=== PATIENT | male | born 1935 | race Caucasian/White ===

== ENCOUNTER → 2016-08-27 | Outpatient (REF) ==
[~2016-08-27] MED LIST: ASPIRIN 32325 MG/TAB PO; FLOMAX 0.40.4 MG/CAP PO; FOLIC ACID800 MCG PO; LISINOPRIL10 MG PO; LOPRESSOR 225 MG/TAB PO; RT ADVAIR 228 DISKUS IH; SYNTHROID0.112 MG/T PO; SYNTHROID0.15 MG PO
== END ==
LOC: COL.CARD 14:06
DX: I47.1 Supraventricular tachycardia (principal); I49.1 Atrial premature depolarization; I49.3 Ventricular premature depolarization; R00.2 Palpitations

== ENCOUNTER → 2016-10-21 | Outpatient (REF) ==
[2016-10-21 15:35] LABS: THYROID STIMULATING HORMONE 0.204 uIU/mL (0.465-4.680)
== END ==
LOC: ZLAB.WCH 14:41
PROVIDERS: Family Medicine
DX: Z01.89 Encounter for other specified special examinations (principal)

== ENCOUNTER → 2017-04-29 | Outpatient (REF) ==
[2017-04-29 09:37] LABS: FERRITIN 528 ng/mL (18-464)
== END ==
LOC: ZLAB.WCH 08:49
PROVIDERS: Family Medicine
DX: Z01.89 Encounter for other specified special examinations (principal)

== ENCOUNTER → 2017-05-20 | Outpatient (REF) ==
[2017-05-20 15:21] LABS: THYROID STIMULATING HORMONE 0.037 uIU/mL (0.465-4.680)
== END ==
LOC: ZLAB.WCH 14:14
PROVIDERS: Family Medicine
DX: Z01.89 Encounter for other specified special examinations (principal)

== ENCOUNTER → 2017-08-13 | Outpatient (REF) ==
[2017-08-13 20:20] LABS: THYROID STIMULATING HORMONE 0.699 uIU/mL (0.465-4.680)
== END ==
LOC: ZLAB.WCH 18:47
PROVIDERS: Family Medicine
DX: Z01.89 Encounter for other specified special examinations (principal)

== ENCOUNTER → 2017-12-24 | Outpatient (REF) | LOC: ZLAB.WCH 16:42 | DX: Z01.89 Encounter for other specified special examinations (principal) ==

== ENCOUNTER → 2018-01-05 | Outpatient (REF) | LOC: ZLAB.WCH 15:55 | DX: Z01.89 Encounter for other specified special examinations (principal) ==

== ENCOUNTER → 2018-07-04 | Outpatient (REF) | LOC: ZLAB.WCH 11:07 | DX: Z01.89 Encounter for other specified special examinations (principal) ==

== ENCOUNTER → 2018-08-22 | Outpatient (REF) | LOC: ZLAB.WCH 18:22 | DX: Z01.89 Encounter for other specified special examinations (principal) ==

== ENCOUNTER → 2018-08-31 | Outpatient (REF) | LOC: ZLAB.WCH 18:34 | DX: Z01.89 Encounter for other specified special examinations (principal) ==

== ENCOUNTER → 2018-10-12 | Outpatient (REF) | LOC: ZLAB.WCH 11:57 | DX: Z01.89 Encounter for other specified special examinations (principal) ==

== ENCOUNTER → 2018-12-12 | Outpatient (REF) ==
[2018-12-12 15:17] LABS: THYROID STIMULATING HORMONE 1.4 uIU/mL (0.465-4.680)
== END ==
LOC: ZLAB.WCH 14:20
PROVIDERS: Family Medicine
DX: Z01.89 Encounter for other specified special examinations (principal)

== ENCOUNTER → 2018-12-30 | Outpatient (REF) | LOC: ZLAB.WCH 10:05 | DX: Z01.89 Encounter for other specified special examinations (principal) ==

== ENCOUNTER → 2019-01-09 | Outpatient (REF) | LOC: ZLAB.WCH 14:05 | DX: Z01.89 Encounter for other specified special examinations (principal) ==

== ENCOUNTER → 2019-02-13 | Outpatient (REF) | LOC: ZLAB.WCH 09:38 | DX: Z01.89 Encounter for other specified special examinations (principal) ==

== ENCOUNTER 2020-09-27 15:31 | Inpatient (IN) | payer MEDICARE, BC ==
[~2020-09-27] VITALS: Ht 182.9 cm; Wt 100.5 kg
[2020-09-27] MEDS ORDERED: TOPROL XL 25MG25 MG PO (18:14)
[2020-09-27] MEDS ORDERED: LEVOXYL0.125 MG PO (18:15)
[2020-09-27] MEDS ORDERED: FOLIC ACID 11 MG/TA1 PO (18:15)
[2020-09-27] MEDS ORDERED: YUPELRI175 MCG/3 IH (18:16)
[2020-09-27] MEDS ORDERED: ACIDOPHILIS PO (18:16)
[2020-09-27] MEDS ORDERED: PROTONIX20 MG PO (18:17)
[2020-09-27] MEDS ORDERED: ASPIRIN 81M81 MG/TA2 PO (18:18)
[2020-09-27] MEDS ORDERED: AMITRIPTYLINE H10 M1 PO (18:18)
[2020-09-27] MEDS ORDERED: TYLENOL 500MG500 MG PO (18:19)
[2020-09-27] MEDS ORDERED: LASIX 40MG TABL40 MG PO (18:19)
[2020-09-27] MEDS ORDERED: DULCOLAX STOOL100 MG PO (18:20)
[2020-09-27] MEDS ORDERED: FLOMAX 0.40.4 MG/CAP PO (18:22)
[2020-09-27] MEDS ORDERED: TYLENOL 325MG325 MG PO (18:29)
[2020-09-27] MEDS ORDERED: ATIVAN 0.50.5 MG/TAB PO (18:30)
[2020-09-27] MEDS ORDERED: MIRALAX PA17 GM/Dose PO (18:31)
[2020-09-27] MEDS ORDERED: VESICARE 5MG5 MG PO ×2 (18:32→18:35)
--- NOTE | 2020-09-27 18:38 | NUR ---
Patient admitted to [facility] per EMS at 1700, paperwork received. Yousuf Hill and Fly notified of admission at 1705. NGT placed in right nare at 65cm per drs order, return of brown liquid. See assessment. Abdomen distended and firm, bowel sounds distant and tinkling. No bowel movement x 3 days. No flatus. No c/o pain at this time.
[2020-09-27 18:49] VITALS: BP 152/47; PULSE 84; TEMP 97.4
--- NOTE | 2020-09-27 19:30 | NUR ---
Pt. sitting up in bed with at bedside. Pt. is A&OX3, assessment complete. INT to rt. ac patent. NG tube to LIS with brown drainage noted. Pt. denies pain. Call light within reach.
--- NOTE | 2020-09-27 20:45 | NUR ---
Pt. to OR.
[2020-09-27 21:40] LABS: COLLECTION METHOD IN
[2020-09-27 21:45] LABS: MUCOUS Present /lpf; PH 5 (5-8); SQUAMOUS EPITHELIAL 0-2 /hpf; URINE APPEARANCE Clear; URINE BACTERIA Rare /hpf; URINE BILIRUBIN Negative (NEGATIVE); URINE BLOOD Negative (NEGATIVE); URINE COLOR Yellow; URINE GLUCOSE Negative (NEGATIVE); URINE KETONE Negative (NEGATIVE); URINE LEUKOCYTE ESTERASE Negative (NEGATIVE); URINE NITRATE Negative (NEGATIVE); URINE PROTEIN(semi-quant) Negative (NEGATIVE); URINE RBC 0-2 /hpf; URINE UROBILINOGEN Negative (NEGATIVE)
[2020-09-27 23:00] VITALS: BP 144/41; PULSE 87; TEMP 97.3
--- NOTE | 2020-09-27 23:05 | NUR ---
Pt. returned from PACU. Pt. is arousable to verbal stimuli, but is not really alert or oriented. Pt. very groggy at this time. Bed alarm on.
[2020-09-27 23:30] VITALS: BP 146/58; PULSE 83
[2020-09-27 23:45] VITALS: BP 152/46; PULSE 83
[2020-09-28] VITALS (8 sets, daily range): BP systolic 109–141; BP diastolic 40–92; PULSE 59–93; TEMP 97.8–98.8
[2020-09-28 04:20] LABS: MEAN CELL VOLUME 102 fl (80.0-100.0); MEAN CORPUSCULAR HGB CONC 31 g/dl (33.0-37.0); MEAN PLATELET VOLUME 10.3 fl (7.4-10.4); PLATELET COUNT 286 K/mm3 (130-400); RED BLOOD COUNT 2.37 M/mm3 (4.20-5.60); REDCELL DISTRIBUTION WIDTH-CV 27.2 % (11.5-14.5)
[2020-09-28 04:27] LABS: HEMATOCRIT 24.1 % (42.0-52.0); HEMOGLOBIN 7.4 g/dl (13.5-18.0); MEAN CORPUSCULAR HEMOGLOBIN 31 pg (27.0-31.0)
[2020-09-28 04:31] LABS: ALBUMIN 3.7 gm/dL (3.5-5.0); BILIRUBIN,TOTAL 0.9 mg/dL (0.0-1.0); CALCIUM 8.9 mg/dL (8.4-10.2); CREATININE, serum 0.88 (0.66-1.25); POTASSIUM 4.8 mmol/L (3.4-5.0); TOTAL PROTEIN 6.2 gm/dL (6.4-8.2)
[2020-09-28 04:42] LABS: BAND 33 % (0-10); LYMPHOCYTE 22 % (20.0-51.0); NEUTROPHILS 33 % (42.0-75.2)
[2020-09-28 04:43] LABS: ANISOCYTOSIS 1+; HYPOCHROMIA 2+; OVALOCYTES 2+; POIKILOCYTOSIS 1+
[2020-09-28 04:44] LABS: PLATELET ESTIMATE NORMAL (NORMAL); POLYCHROMASIA 1+
[2020-09-28 07:55] LABS: MEAN CELL VOLUME 101 fl (80.0-100.0); MEAN CORPUSCULAR HGB CONC 31 g/dl (33.0-37.0); MEAN PLATELET VOLUME 11.4 fl (7.4-10.4); PLATELET COUNT 328 K/mm3 (130-400); RED BLOOD COUNT 2.58 M/mm3 (4.20-5.60); REDCELL DISTRIBUTION WIDTH-CV 27.5 % (11.5-14.5)
[2020-09-28 08:05] LABS: HEMATOCRIT 26.1 % (42.0-52.0); MEAN CORPUSCULAR HEMOGLOBIN 31 pg (27.0-31.0)
[2020-09-28 08:12] LABS: ALBUMIN 4.1 gm/dL (3.5-5.0); BILIRUBIN,TOTAL 1.2 mg/dL (0.0-1.0); CREATININE, serum 0.92 (0.66-1.25); POTASSIUM 4.6 mmol/L (3.4-5.0); TOTAL PROTEIN 6.8 gm/dL (6.4-8.2)
[2020-09-28 10:03] LABS: ANISOCYTOSIS 4+; BAND 14 % (0-10); HYPOCHROMIA 2+; LYMPHOCYTE 27 % (20.0-51.0); NEUTROPHILS 43 % (42.0-75.2); OVALOCYTES 2+; PLATELET ESTIMATE NORMAL (NORMAL)
[2020-09-28 10:04] LABS: TARGET CELLS 1+
--- NOTE | 2020-09-28 13:39 | NUR ---
SW met with patient to complete intake. Patient's present at the time of intake, and patient provided it was okay for her to answer questions. is Amina [phone]. states she and patient live in [place], states that patient utilizes a walker and a wheelchair when needed, and receives assistance with a shower from her. Patient provides that patient's PCP is Dr. Rasmussen, pharmacy is [facility] and that he is able to afford his medications at this time. Patient's states that she has been appointed as DPOA-HC, but does not have the documentation. Patient's also states that patient utilizes [facility] services. Patient's states that the plan is for patient to go back home if able to do so upon DC. SW will coninue to follow.
--- NOTE | 2020-09-28 18:30 | NUR ---
Patient has been doing ok today. No compliants of nausea. Had some mild pain to abdomen this afternoon. He is tolerated the full liquids well. He got anxious this afternoon, ativan given. His was here most the day. She stated he gets this way at home. Attempted to get up to chair but patient could not sit up on his own and was very weak. Had him lay back down. Encouraged him to do ankle pumps. He does reposition himself in the bed. His only complaint is of having heartburn, protonix ordered. No other changes at this time. Call light within reach.
--- NOTE | 2020-09-28 20:29 | NUR ---
Pt. sitting up in bed at this time. Pt. is A&OX3 at this time. INT to rt. ac patent. Mendoza catheter to DD clear yellow urine noted. Pt. reports pain at a 4 to abd. Gave Tylenol per orders. Pt. denies further needs. Bed alarm on, call light within reach.
[2020-09-29 00:14] VITALS: BP 150/56; PULSE 93; TEMP 98.4
--- NOTE | 2020-09-29 00:34 | NUR ---
Pt. pulled out INT to rt. ac. JERICHO Encarnacion notified. Ol not to restart an IV at this time.
[2020-09-29 03:50] VITALS: BP 149/56; PULSE 80; TEMP 97.5
[2020-09-29 06:57] LABS: MEAN CELL VOLUME 103 fl (80.0-100.0); MEAN CORPUSCULAR HGB CONC 31 g/dl (33.0-37.0); MEAN PLATELET VOLUME 11.3 fl (7.4-10.4); PLATELET COUNT 277 K/mm3 (130-400); RED BLOOD COUNT 2.36 M/mm3 (4.20-5.60); REDCELL DISTRIBUTION WIDTH-CV 27.2 % (11.5-14.5)
[2020-09-29 07:07] LABS: HEMATOCRIT 24.3 % (42.0-52.0); HEMOGLOBIN 7.5 g/dl (13.5-18.0); MEAN CORPUSCULAR HEMOGLOBIN 32 pg (27.0-31.0)
[2020-09-29 07:10] LABS: CALCIUM 8.6 mg/dL (8.4-10.2); CREATININE, serum 0.9 (0.66-1.25); POTASSIUM 4.1 mmol/L (3.4-5.0)
[2020-09-29 07:50] VITALS: BP 137/57; PULSE 78; TEMP 98.4
[2020-09-29 08:10] LABS: ANISOCYTOSIS 4+; BAND 13 % (0-10); LYMPHOCYTE 14 % (20.0-51.0); NEUTROPHILS 61 % (42.0-75.2); PLATELET ESTIMATE NORMAL (NORMAL)
[2020-09-29 08:11] LABS: HYPOCHROMIA 2+; OVALOCYTES 3+
--- NOTE | 2020-09-29 11:00 | NUR ---
Patient is moving better this morning. He is alert and is more oriented today. We got him up to the BSC this morning because he thought he needed to have a bowel movement but was not able to go. Denies pain and nausea. Patient has not been passing flatus. He is better today with transfers. He was able to stand and take a few steps. Spoke with the Physician about starting some PT/OT. Abdomen is distended but soft. No other changes at this time. Call light within reach. We helped patient to the chair after he was done on the BSC.
[2020-09-29 12:00] VITALS: BP 109/72; PULSE 88; TEMP 97.9
--- NOTE | 2020-09-29 12:05 | NUR ---
RN reported that patient is slow to recover. PT/OT was ordered; however no assessment is recorded at this time. Please review PT/OT notes 09/30 for recommendation.
[2020-09-29 15:46] VITALS: BP 141/47; PULSE 101; TEMP 97.8
--- NOTE | 2020-09-29 18:30 | NUR ---
Patients was here most the afternoon. Patient has been doing better this afternoon. Denies pain and nausea. He sat up in the chair most the day. He is more oriented. Kept his flores today for accurate output, will plan to remove tomorrow. Patient still did not have a bowel movement today and has not passed flatus yet. He is not eating too much and is still on full liquids. No other changes at this time. Call light within reach.
[2020-09-29 20:18] VITALS: BP 151/58; PULSE 88; TEMP 97.6
--- NOTE | 2020-09-29 20:47 | NUR ---
PT ALERT AND OX2. ASSESSMENT AND VITALS OBTAINED. LAP SITE TO LOWER ABD C/D/I, GLUED. PT DENIES PAIN N/V. NO BOWEL SOUNDS. PLAN OF CARE DISCUSSED WITH PT. CALL LIGHT WI REACH. BED ALARM ON. NEELY CATH TO DD. NEEDS MET.
[2020-09-30] VITALS (7 sets, daily range): BP systolic 111–162; BP diastolic 38–59; PULSE 74–99; TEMP 97.3–98.7
--- NOTE | 2020-09-30 05:51 | NUR ---
PT SLEPT AND WAS ORIENTATED UNTIL LATE LAST NIGHT. BEGAN TO TAKE OFF TELE PACK AND YELL OUT FOR HELP OFTEN HAD TO BE REORIENTATED. PT DENIES PAIN. STATES HE HAD PASSED GAS AT ONE TIME BUT THEN DENIES ANY GAS ANOTHER. DID ATTEMPT TO GET HIM UP TO COMMODE FOR BM WITH NO RESULTS. OFTEN ASKED FOR AND SON OVERNIGHT. NEEDS MET. BED ALARM ON.
[2020-09-30 06:46] LABS: MEAN CELL VOLUME 99 fl (80.0-100.0); MEAN CORPUSCULAR HGB CONC 31 g/dl (33.0-37.0); MEAN PLATELET VOLUME 11.1 fl (7.4-10.4); PLATELET COUNT 267 K/mm3 (130-400); RED BLOOD COUNT 2.41 M/mm3 (4.20-5.60); REDCELL DISTRIBUTION WIDTH-CV 27.3 % (11.5-14.5)
[2020-09-30 06:55] LABS: CALCIUM 8.7 mg/dL (8.4-10.2); CREATININE, serum 0.81 (0.66-1.25); POTASSIUM 4.3 mmol/L (3.4-5.0)
[2020-09-30 07:35] LABS: HEMATOCRIT 23.9 % (42.0-52.0); HEMOGLOBIN 7.5 g/dl (13.5-18.0); MEAN CORPUSCULAR HEMOGLOBIN 31 pg (27.0-31.0)
[2020-09-30 09:16] LABS: BAND 22 % (0-10); LYMPHOCYTE 9 % (20.0-51.0); METAMYELOCYTE 1 % (0-0); NEUTROPHILS 60 % (42.0-75.2); PLATELET ESTIMATE NORMAL (NORMAL)
[2020-09-30 09:19] LABS: OVALOCYTES 2+; SCHISTOCYTES 1+; TARGET CELLS 1+
[2020-09-30 09:20] LABS: HYPOCHROMIA 2+
--- NOTE | 2020-09-30 11:08 | NUR ---
Dr. Bill in to see patient
--- NOTE | 2020-09-30 13:09 | NUR ---
Radiology in for ECHO
--- NOTE | 2020-09-30 14:07 | NUR ---
OT notified SW that they would recommend post-acute rehab for the patient. PT is also recommending home with family assist vs post-acute rehab. QUYEN met with the patient and his , Amina, to discuss their recommendations. The patient was sleeping. Amina reports that she would be interested in rehab for the patient and would prefer a facility in [place]. QUYEN informed her of [facility] and [facility]. Amina is agreeable for QUYEN to send referrals to both facilities. SW informed Amina how transportation is not provided for [place] and that family would need to transport. Amina verbalized understanding. QUYEN attempted to contact Jennifer at [facility]. QUYEN left her a voicemail, giving her the referral. QUYEN contacted and emailed a referral to Bree at [facility]. Awaiting screen. QUYEN asked the PA for a COVID test to be ordered.
--- NOTE | 2020-09-30 17:46 | NUR ---
Patient has done well throughout the day, has had multiple BMs today. up to BSC with x1 assist and walker, steady gait. Barrier cream applied to coccyx wound. Mendoza discontinued per orders at approximately 1530, pericare provided at the time. Patient up to recliner throughout the day. Denies pain or further needs at this time. Will report off to overnight caregiver.
--- NOTE | 2020-09-30 20:34 | NUR ---
1899- REPORT RECIEVED CARE ASSUMED. PT SETTING UP IN CHAIR FINISHED WITH DINNER. DENIES PAIN, SOA OR DIZZY. 1ASST BACK TO BED WO INCIDENT. ALERT AND OX 3. IV SALINE LOCKED, INTACT NO REDNESS OR PAIN. 2L N/C. AWAITING PLACEMENT POSSIBLE DC TOMORROW. NEEDS MET. BED ALARM ON.
--- NOTE | 2020-09-30 23:47 | NUR ---
2230- PT WAKES UP AGITATED AND PULLS OUT IV, REMOVES TELE PACK,LEADS AND ALL CLOTHES. HAS SUNDOWNERS AT NIGHT AND BECOMES DIFFICULT TO REORIENTATE. GETS UP AND ATTEMPTS TO GO OUT IN [place] IS VERY UNSTEADY BUT PUSHING FORWARD WITH WALKER TO "GET OUT OF HERE". [facility] ECHAVARRIA CALLED FOR ORDERS. ATIVAN 0.5MG IM GIVEN. AFTER 20 MIN OF REASONING W PT ABLE TO GET HIM TO LAY DOWN IN BED. CONTINUES TO TRY TO GET UP. WINDOWS APPLICATION ADMINISTRATOR HAVE TO STAY AT BEDSIDE FOR SAFTEY AT ALL TIMES. 2320- PT CONT TO BE AWAKE AND AGITATED, C/O CHEST PAIN. [facility] NOTIFIED. ORDERS FOR EKG, TROPONIN AND GI COCKTAIL. PT FOUGHT W RT TO DO EKG BUT WAS FINALLY ABLE TO OBTAIN. REFUSED LAB, TROPONIN SAID HE WOULD MURDER THE ACCOUNTING OFFICER IF SHE TOUCHED HIM YET STATES HE WILL CALL ACCOUNT SERVICES REPRESENTATIVE FOR NOT BEING TAKEN CARE OF. ALSO ATTEMPTED TO GIVE HIM GI COCKTAIL AND WAS REFUSED BY PT. WINDOWS APPLICATION ADMINISTRATOR REMAINS AT BEDSIDE PT REFUSES TO LAY DOWN.
--- NOTE | 2020-10-01 00:13 | NUR ---
ADE[facility] ECHAVARRIA AND HOUSE AT BEDSIDE, PT CONTINUE TO REFUSE CARE. [facility] TRYING TO REASON WITH PT TO ALLOW TEST. CONTINUALLY STATES "NO".
--- NOTE | 2020-10-01 00:50 | NUR ---
PT CONTINUES TO BE AWAKE YELLING OUT FOR HELP. STATES "CALL THE DOCTOR I AM DYING". INFORMED THAT WE HAVE CALLED THE DOCTOR AND THEY HAVE ORDERED TEST WHICH HE WILL NOT ALLOW. RN ASK IF WE MAY DRAW LAB AND GET EKG COOPERATIVELY AND PT STATES NO. HE IS LYING IN BED. BED ALARM ON. DROWSY. VITALS REMAIN STABLE. BP 115/80, R16, P 64.
[2020-10-01 02:21] LABS: PARTIAL THROMBOPLASTIN TIME 28.1 SECONDS (26.0-37.0)
--- NOTE | 2020-10-01 03:25 | NUR ---
PT BECAME SLEEPY AND SETTLED DOWN AFTER ATIVAN WHICH WE WERE ABLE TO REPEAT EKG AND GET TROPONIN. ST DEPRESSION NOTED. ADE[facility] ECHAVARRIA AT BEDSIDE. HORTICULTURE SUPERVISOR CALLED AND PT BEING TRANSFERED TO [facility]. ASPRIN GIVEN RECTALLY. METOPROLOL 5MG IV W MONITORING. BPS OF 119/59 P 95 AFTER SLOW [USH DROPS TO 88/42, P 75. BP Q 2MIN 117/58 P 77 119/57 P 66 ,101/52 P 64 115/49 P60. 02 REMAINS 92-99%. CALLED BY HOUSE SUP AND UPDATED ON STATUS CHANGE. HEPARIN DRIP STARTED AT 0230 PER ORDER. EMS HERE FOR GRIP WRAPPER AT 0250. REPORT CALLED TO SANDRA CASTILLO.
--- NOTE | 2020-10-01 09:12 | NUR ---
Bree, at [facility], reports that they would be able to take the patient, if his COVID results come back negative. The patient transferred to [facility] last night. QUYEN informed Bree of this.
== END 2020-10-01 03:08 | disposition short-term general hospital (02) | DRG 335 ==
LOC: SURG 15:31
PROVIDERS: Student in an Organized Health Care Education/Training Program; Surgery; ADMIT Student in an Organized Health Care Education/Training Program
PROC: 8E0W4CZ Robotic Assisted Procedure of Trunk Region, Percutaneous Endoscopic Approach (ICD-10-PCS; 2020-09-27)
PROC: 0DNU4ZZ Release Omentum, Percutaneous Endoscopic Approach (ICD-10-PCS; principal; 2020-09-27 21:00)
DX: K56.50 Intestinal adhesions [bands], unspecified as to partial versus complete obstruction (principal); I21.4 Non-ST elevation (NSTEMI) myocardial infarction; I11.0 Hypertensive heart disease with heart failure; I50.9 Heart failure, unspecified; I48.91 Unspecified atrial fibrillation; J44.9 Chronic obstructive pulmonary disease, unspecified; E03.9 Hypothyroidism, unspecified; D64.9 Anemia, unspecified; I71.9 Aortic aneurysm of unspecified site, without rupture; I25.10 Atherosclerotic heart disease of native coronary artery without angina pectoris; K21.9 Gastro-esophageal reflux disease without esophagitis; R32 Unspecified urinary incontinence; Z99.81 Dependence on supplemental oxygen; Z85.51 Personal history of malignant neoplasm of bladder; Z79.82 Long term (current) use of aspirin; Z87.891 Personal history of nicotine dependence; Z88.1 Allergy status to other antibiotic agents; Z88.8 Allergy status to other drugs, medicaments and biological substances
CPT/HCPCS: 99223-AI; 99231-AI; 99232-AI; 99233-AI; A4314; A9284; J1644; J2060; J2270; J2370; J2704; J3010; J7050

== ENCOUNTER 2021-03-04 06:47 | Outpatient (CLI) | payer MEDICARE, BC ==
[~2021-03-04] VITALS: Ht 182.9 cm; Wt 95.4 kg
[~2021-03-04 06:47] MED LIST changes: +ACIDOPHILIS PO; +AMITRIPTYLINE H10 M1 PO; +ASPIRIN 81M81 MG/TA2 PO; +ATIVAN 0.50.5 MG/TAB PO; +DULCOLAX STOOL100 MG PO; +FOLIC ACID 11 MG/TA1 PO; +LASIX 40MG TABL40 MG PO; +LEVOXYL0.125 MG PO; +MIRALAX PA17 GM/Dose PO; +PROTONIX20 MG PO; +TOPROL XL 25MG25 MG PO; +TYLENOL 325MG325 MG PO; +TYLENOL 500MG500 MG PO; +VESICARE 5MG5 MG PO; +YUPELRI175 MCG/3 IH
[2021-03-04] MEDS ORDERED: PACERONE200 MG PO (07:38)
[2021-03-04] MEDS ORDERED: LIPITOR 10MG10 MG PO (07:39)
[2021-03-04 07:41] LABS: MEAN CELL VOLUME 94 fl (80.0-100.0); MEAN CORPUSCULAR HGB CONC 30 g/dl (33.0-37.0); MEAN PLATELET VOLUME 11.5 fl (7.4-10.4); PLATELET COUNT 185 K/mm3 (130-400); RED BLOOD COUNT 2.88 M/mm3 (4.20-5.60); REDCELL DISTRIBUTION WIDTH-CV 21.2 % (11.5-14.5)
[2021-03-04] MEDS ORDERED: COZAAR 25MG25 MG/TAB PO (07:41)
[2021-03-04] MEDS ORDERED: ALDACTONE 25MG25 M1 PO (07:42)
[2021-03-04 07:43] VITALS: BP 135/51; PULSE 48; TEMP 97.8
[2021-03-04] MEDS ORDERED: SYNTHROID0.125 MG/T PO (07:43)
[2021-03-04 07:56] LABS: HEMATOCRIT 27.2 % (42.0-52.0); HEMOGLOBIN 8.2 g/dl (13.5-18.0); MEAN CORPUSCULAR HEMOGLOBIN 28 pg (27.0-31.0)
[2021-03-04 08:01] LABS: ANISOCYTOSIS 2+; BAND 21 % (0-10); EOSINOPHIL 4 % (0-4); HYPOCHROMIA 1+; LYMPHOCYTE 27 % (20.0-51.0); NEUTROPHILS 35 % (42.0-75.2); PLATELET ESTIMATE NORMAL (NORMAL); SCHISTOCYTES 2+; TEAR DROP CELLS 1+
[2021-03-04 09:40] VITALS: BP 121/43; PULSE 43; TEMP 97.8
--- NOTE | 2021-03-04 09:40 | NUR ---
Patient arrives to [facility] via cart, accompanied by APPLIED PSYCHOLOGY PROFESSOR Shanelle. He is alert and oriented. VSS on 2 L nasal cannula, patient's home O2 dose. He remains bradycardic, which he was on admission and throughout his procedure. PIV to TKO. He is to remain flat for 10 minutes per order. Will continue to monitor.
[2021-03-04 09:55] VITALS: BP 124/52; PULSE 46
--- NOTE | 2021-03-04 09:55 | NUR ---
Patient is resting comfortably. He is able to sit up now and does so without issue. VSS on O2. He is offered and receives coffee and a muffin to eat.
[2021-03-04 10:10] VITALS: BP 125/37; PULSE 41
--- NOTE | 2021-03-04 10:10 | NUR ---
Patient is tolerating PO well. Denies needs.
--- NOTE | 2021-03-04 10:53 | NUR ---
Patient has met discharge criteria. His bandage remains clean/dry/intact. Denies pain or other complaints. VSS on 2L O2, his home dose. PIV is removed with catheter intact and hemostasis achieved. He voids prior to discharge with staff assistance. Staff assists him to change clothing and get into the wheelchair. Discharge instructions are discussed; he denies any questions and verbalizes understanding. He is escorted to the exit via wheelchair by staff and discharged to home to the care of his , who drives him home in private vehicle at 1053.
[2021-03-04 12:04] VITALS: BP 121/43; PULSE 44
== END 2021-03-04 10:53 | disposition home or self-care (01) ==
LOC: SDCO 06:47
PROVIDERS: Pathology Anatomic Pathology & Clinical Pathology
DX: J44.9 Chronic obstructive pulmonary disease, unspecified (principal); D63.1 Anemia in chronic kidney disease; I25.10 Atherosclerotic heart disease of native coronary artery without angina pectoris
CPT/HCPCS: J2250; J2704; J7120